=== PATIENT | male | born 1985 | race Caucasian/White ===

== ENCOUNTER 2024-07-25 16:17 | Emergency (ER) | payer SELFPAY ==
[~2024-07-25] VITALS: Ht 172.7 cm; Wt 82.0 kg
[2024-07-25 16:23] VITALS: BP 154/105; RESP 18; TEMP 99; O2SAT 99
[2024-07-25 16:52] VITALS: PULSE 121; O2SAT 95
[2024-07-25] MEDS: ACETAMINOPHEN 500MG TABLET PO ONE (17:43)
== END 2024-07-25 18:25 | disposition home or self-care (01) ==
LOC: ER 16:17
DX: J06.9 Acute upper respiratory infection, unspecified (principal); B97.89 Other viral agents as the cause of diseases classified elsewhere; Z98.890 Other specified postprocedural states; Z20.822 Contact with and (suspected) exposure to COVID-19
CPT/HCPCS: 87426; 87804; 99283